=== PATIENT | male | born 1995 | race Caucasian/White ===

== ENCOUNTER → 2020-02-19 | Outpatient (REF) | payer SELFPAY | LOC: M LABCAHC 08:55 | PROVIDERS: ATTEND Pediatrics | DX: Z20.828 Contact with and (suspected) exposure to other viral communicable diseases (principal) ==

== ENCOUNTER 2020-10-09 13:26 | Emergency (ER) | payer OTHER ==
[~2020-10-09 13:26] MED LIST: BENZ0.5T23 PO; NICO7PA TD; OLAN1TAB16 PO
[2020-10-09] MEDS ORDERED: ABIL1TAB11 PO (13:44)
[2020-10-09 17:10] VITALS: BP 105/61
== END 2020-10-09 17:12 | disposition home or self-care (01) ==
LOC: M ED 13:26
DX: F43.20 Adjustment disorder, unspecified (principal); F41.9 Anxiety disorder, unspecified; Z79.899 Other long term (current) drug therapy